=== PATIENT | male | born 1985 | race Caucasian/White ===

== ENCOUNTER 2024-01-07 10:19 | Emergency (ER) | payer MEDICAID, OTHER ==
[~2024-01-07] VITALS: Ht 172.7 cm; Wt 73.0 kg
[2024-01-07 10:24] VITALS: O2SAT 99
[2024-01-07] MEDS: SODIUM CHLORIDE 0.9% 1,000 ML IV ONE (10:49)
[2024-01-07 11:02] LABS: BASOPHILS % 0.4 % (0.0-2.0); HEMATOCRIT. 33.9 % (42.0-52.0); LYMPHOCYTES % 24.3 % (20.0-50.0); MEAN CORPUSCULAR HEMOGLOBIN 28.1 pg (28.0-32.0); MEAN CORPUSCULAR HGB CONC 32.3 g/dL (31.0-37.0); MEAN PLATELET VOLUME 7.1 fl (7.4-10.4); NEUTROPHILS % 64.3 % (40.0-76.0); PLATELET 311 x1000/uL (130-400); RED CELL DISTRIBUTION WIDTH 17.1 % (11.6-14.6); WHITE BLOOD COUNT 5.2 x1000/uL (4.5-11.0)
[2024-01-07 11:14] LABS: CALCIUM 8.4 mg/dL (8.7-10.4); CARBON DIOXIDE 25 mEq/L (21-32); CHLORIDE 106 mEq/L (98-107); POTASSIUM 3.1 mEq/L (3.5-5.1); SODIUM 139 mEq/L (136-145)
[2024-01-07 11:19] LABS: CREATININE 0.8 mg/dL (0.6-1.3)
[2024-01-07 11:20] LABS: GLUCOSE 138 mg/dL (70-105); UREA NITROGEN BLOOD 13 mg/dL (9-23)
[2024-01-07 12:54] VITALS: BP 114/72; PULSE 82; RESP 18; TEMP 98.4
== END 2024-01-07 13:06 | disposition short-term general hospital (02) ==
LOC: ER 10:19 → CANBEDREQ 12:18 → ER 13:06
DX: R55 Syncope and collapse (principal); R53.1 Weakness; I10 Essential (primary) hypertension
CPT/HCPCS: 99285; 96360; 80048; 85025; 36415; J7030

== ENCOUNTER 2025-01-27 00:24 | Emergency (ER) | payer OTHER ==
[~2025-01-27] VITALS: Ht 175.3 cm; Wt 80.0 kg
[2025-01-27 00:33] VITALS: O2SAT 98
[2025-01-27 01:04] LABS: BASOPHILS % 0.3 % (0.0-2.0); EOSINOPHILS % 2.6 % (0.0-5.0); HEMATOCRIT. 35.9 % (42.0-52.0); HEMOGLOBIN. 11.7 g/dL (14.0-18.0); LYMPHOCYTES % 28.6 % (20.0-50.0); MEAN PLATELET VOLUME 6.7 fl (7.4-10.4); MONOCYTES % 7.2 % (2.0-8.0); NEUTROPHILS % 61.3 % (40.0-76.0); PLATELET 348 x1000/uL (130-400); RED BLOOD CELL COUNT 4.17 mill/uL (4.7-6.1); RED CELL DISTRIBUTION WIDTH 17.5 % (11.6-14.6)
[2025-01-27 01:07] LABS: CREATININE 0.9 mg/dL (0.6-1.3); ETHANOL BLOOD < 10 mg/dL (<10); UREA NITROGEN BLOOD 20 mg/dL (9-23)
[2025-01-27 01:08] LABS: TROPONIN I HIGH SENSITIVITY < 4 ng/L (3.0-53)
[2025-01-27 01:09] LABS: ASPARTATE AMINOTRANSFERASE 25 IU/L (<34); BILIRUBIN DIRECT < 0.1 mg/dL (<=3.0); BILIRUBIN TOTAL 0.2 mg/dL (0.1-1.0); PROTEIN TOTAL 6.8 g/dL (6.0-8.3)
[2025-01-27] MEDS: MAGNESIUM/ALUMINUM HYDROXIDE/SIMETHICONE 30ML UDC PO ONE (01:34)
[2025-01-27] MEDS: VISCOUS LIDOCAINE 2% 15 ML UDC MM ONE (01:34)
[2025-01-27] MEDS: ONDANSETRON HCL 4MG/2ML INJ IV ONE (01:35)
[2025-01-27] MEDS ORDERED: ONDA4TAB50 MT (03:20)
[2025-01-27] MEDS ORDERED: MAG-55 MT (03:20)
[2025-01-27 03:31] VITALS: BP 135/90; PULSE 74; RESP 13; TEMP 36.6; O2SAT 100
== END 2025-01-27 03:40 | disposition home or self-care (01) ==
LOC: ER 00:32
DX: K29.70 Gastritis, unspecified, without bleeding (principal); I10 Essential (primary) hypertension; Z79.899 Other long term (current) drug therapy
CPT/HCPCS: 80076; 80048; 80320; 83690; 85025; 84484; 36415; 71045; 74176; 93005; 96374; 99285; J2405; Z7610 ×2; G0480